=== PATIENT | male | born 1990 | race Hispanic/Latino ===

== ENCOUNTER 2017-01-20 11:50 | Emergency (ER) | payer OTHER, SELFPAY ==
[2017-01-20] MEDS ORDERED: Ondansetron ODT 4 MG TAB ONE (13:46)
[2017-01-20] MEDS ORDERED: Acetaminophen 500 MG TAB ONE (13:46)
== END 2017-01-20 15:11 | disposition home or self-care (01) ==
LOC: ERS 11:50
DX: B34.9 Viral infection, unspecified (principal)
CPT/HCPCS: 87081; 87430; 99283; Q0162